=== PATIENT | female | born 1965 | race African-American/Black ===

== ENCOUNTER 2018-10-02 04:03 | Inpatient (IN) | payer SELFPAY ==
[~2018-10-02] VITALS: Ht 165.1 cm; Wt 70.3 kg
[2018-10-02] MEDS ORDERED: ONDANSETRON HCL 4MG/2ML INJ IV STA (04:36)
[2018-10-02] MEDS ORDERED: KETOROLAC 30MG/ML VIAL IV STA (04:36)
[2018-10-02 05:39] LABS: BASOPHILS % 0.3 % (0.0-2.0); EOSINOPHILS % 0.1 % (0.0-5.0); HEMATOCRIT. 31.9 % (36.0-48.0); HEMOGLOBIN. 10.5 g/dL (12.0-16.0); LYMPHOCYTES % 8.3 % (20.0-50.0); MEAN CORPUSCULAR HEMOGLOBIN 27.5 pg (28.0-32.0); MEAN CORPUSCULAR VOLUME 83.2 fL (81.0-99.0); MEAN PLATELET VOLUME 9.9 fl (7.4-10.4); MONOCYTES % 4.2 % (2.0-8.0); NEUTROPHILS % 87.1 % (40.0-76.0); PLATELET 227 x1000/uL (130-400); RED BLOOD CELL COUNT 3.84 mill/uL (4.2-5.4); RED CELL DISTRIBUTION WIDTH 14.9 % (11.6-14.6)
[2018-10-02 05:43] LABS: CHLORIDE 104 mEq/L (98-107)
[2018-10-02 05:44] LABS: PROTHROMBIN TIME 10.4 sec (9.1-11.1)
[2018-10-02 05:47] LABS: ETHANOL BLOOD < 10 mg/dL
[2018-10-02 06:49] LABS: CLARITY URINE CLEAR (CLEAR); COLOR URINE YELLOW (YELLOW); KETONES URINE 1+ (NEGATIVE); LEUKOCYTE ESTERASE URINE NEGATIVE (NEGATIVE); NITRITE URINE NEGATIVE (NEGATIVE); OCCULT BLOOD URINE NEGATIVE (NEGATIVE); PROTEIN URINE NEGATIVE (NEGATIVE); SPECIFIC GRAVITY URINE 1.018 (1.005-1.030); UROBILINOGEN URINE 0.2 E.U./dL (0.2-1.0)
[2018-10-02] MEDS ORDERED: MORPHINE SULFATE 4 MG/ML CPJ (NOT FOR IM USE) IV ONE ×2 (07:45)
[2018-10-02] MEDS ORDERED: ONDANSETRON HCL 4MG/2ML INJ IV ONE (07:45)
[2018-10-02 08:00] VITALS: BP 116/62
[2018-10-02] MEDS ORDERED: ACETAMINOPHEN 325MG TABLET PO PRN (10:00)
[2018-10-02] MEDS ORDERED: LORAZEPAM 0.5MG TABLET PO PRN (10:00)
[2018-10-02] MEDS ORDERED: GUAIFENESIN 200MG/10ML SUGAR FREE UDC PO PRN (10:00)
[2018-10-02] MEDS ORDERED: IPRATROPIUM/ALBUTEROL 0.5-3(2.5)MG/3ML NEB INH PRN (10:00)
[2018-10-02] MEDS ORDERED: MAGNESIUM/ALUMINUM HYDROXIDE/SIMETHICONE 30ML UDC PO PRN (10:00)
[2018-10-02] MEDS ORDERED: NA PHOS,M-B/NA PHOS,DI-BA ENEMA 118ML PR PRN (10:00)
[2018-10-02] MEDS ORDERED: CLONIDINE 0.1MG TABLET PO PRN (10:00)
[2018-10-02] MEDS ORDERED: TRAMADOL 50MG TABLET PO PRN (10:00)
[2018-10-02] MEDS ORDERED: NITROGLYCERIN 0.4MG TABLET SL SL PRN (10:00)
[2018-10-02] MEDS ORDERED: ONDANSETRON HCL 4MG/2ML INJ IV PRN (10:00)
[2018-10-02] MEDS: METOPROLOL TARTRATE 25MG TABLET PO SCH ×2 (10:56→23:12)
[2018-10-02 11:00] VITALS: BP 146/66
[2018-10-02] MEDS: DEXT 5%/0.45% NACL 1000ML 1,000 ML IV SCH ×2 (11:11→23:09)
[2018-10-02 12:00] VITALS: BP 146/66
[2018-10-02] MEDS: PIPERACILLIN/TAZ 3.375G PREMIX 50 ML IV SCH ×2 (13:02→19:00)
[2018-10-02] MEDS: PANTOPRAZOLE SODIUM 40 MG/VIAL IV SCH (13:03)
[2018-10-02] MEDS: ENOXAPARIN 40MG/0.4ML SYR SUBCUT SCH (13:03)
[2018-10-02 16:00] VITALS: BP 161/65
[2018-10-02] MEDS ORDERED: UNDE (16:33)
[2018-10-02] MEDS: KETOROLAC 15MG/ML VIAL IV PRN (17:51)
[2018-10-02 20:00] VITALS: BP 139/62
[2018-10-02] MEDS ORDERED: ZOLPIDEM TARTRATE 5MG TABLET PO PRN (21:00)
[2018-10-03] VITALS: BP 145/65
[2018-10-03] MEDS: PIPERACILLIN/TAZ 3.375G PREMIX 50 ML IV SCH ×3 (01:23→18:06)
[2018-10-03 04:00] VITALS: BP 136/66
[2018-10-03] MEDS: KETOROLAC 15MG/ML VIAL IV PRN (05:02)
[2018-10-03 07:31] LABS: BASOPHILS % 0.3 % (0.0-2.0); HEMATOCRIT. 32.6 % (36.0-48.0); HEMOGLOBIN. 10.5 g/dL (12.0-16.0); LYMPHOCYTES % 8.4 % (20.0-50.0); MEAN CORPUSCULAR HEMOGLOBIN 26.9 pg (28.0-32.0); MEAN CORPUSCULAR VOLUME 83.3 fL (81.0-99.0); MEAN PLATELET VOLUME 10.2 fl (7.4-10.4); MONOCYTES % 8.8 % (2.0-8.0); NEUTROPHILS % 81.5 % (40.0-76.0); PLATELET 254 x1000/uL (130-400); RED BLOOD CELL COUNT 3.91 mill/uL (4.2-5.4); RED CELL DISTRIBUTION WIDTH 15.1 % (11.6-14.6)
[2018-10-03 07:49] LABS: CHLORIDE 104 mEq/L (98-107)
[2018-10-03] MEDS: METOPROLOL TARTRATE 25MG TABLET PO SCH ×2 (09:00→22:27)
[2018-10-03] MEDS: PANTOPRAZOLE SODIUM 40 MG/VIAL IV SCH (09:04)
[2018-10-03] MEDS: ENOXAPARIN 40MG/0.4ML SYR SUBCUT SCH (09:06)
[2018-10-03] MEDS ORDERED: POTASSIUM CHLORIDE 20MEQ TABLET SR PO NR (09:45)
[2018-10-03 12:00] VITALS: BP 122/72
[2018-10-03] MEDS: DEXT 5%/0.45% NACL 1000ML 1,000 ML IV SCH (15:41)
[2018-10-03 16:00] VITALS: BP 130/69
[2018-10-03 20:00] VITALS: BP 115/59
[2018-10-04] VITALS (7 sets, daily range): BP systolic 100–117; BP diastolic 49–84
[2018-10-04] MEDS: PIPERACILLIN/TAZ 3.375G PREMIX 50 ML IV SCH ×4 (00:41→16:56)
[2018-10-04] MEDS: KETOROLAC 15MG/ML VIAL IV PRN ×3 (00:41→21:04)
[2018-10-04] MEDS: DEXT 5%/0.45% NACL 1000ML 1,000 ML IV SCH ×2 (04:44→14:57)
[2018-10-04 06:41] LABS: BASOPHILS % 0.4 % (0.0-2.0); EOSINOPHILS % 2.9 % (0.0-5.0); HEMATOCRIT. 31.1 % (36.0-48.0); HEMOGLOBIN. 10.2 g/dL (12.0-16.0); LYMPHOCYTES % 12.6 % (20.0-50.0); MEAN CORPUSCULAR HEMOGLOBIN 27.6 pg (28.0-32.0); MEAN CORPUSCULAR VOLUME 83.8 fL (81.0-99.0); MEAN PLATELET VOLUME 10.3 fl (7.4-10.4); MONOCYTES % 10.8 % (2.0-8.0); NEUTROPHILS % 73.3 % (40.0-76.0); PLATELET 246 x1000/uL (130-400); RED BLOOD CELL COUNT 3.71 mill/uL (4.2-5.4); RED CELL DISTRIBUTION WIDTH 15.4 % (11.6-14.6)
[2018-10-04 07:12] LABS: CHLORIDE 104 mEq/L (98-107)
[2018-10-04] MEDS: POTASSIUM CHLORIDE 20MEQ/PACKET PO NR ×2 (08:23→08:50)
[2018-10-04] MEDS: METOPROLOL TARTRATE 25MG TABLET PO SCH ×2 (08:24→21:02)
[2018-10-04] MEDS: ENOXAPARIN 40MG/0.4ML SYR SUBCUT SCH (08:24)
[2018-10-04] MEDS: PANTOPRAZOLE SODIUM 40 MG/VIAL IV SCH (08:26)
[2018-10-05] MEDS ORDERED: FAMOTIDINE 20MG/2ML VIAL IV SCH (09:00)
== END 2018-10-04 22:15 | disposition home or self-care (01) ==
LOC: ER 04:03 → 6EST 09:04 → EDBEDREQTM 09:07 → EDBEDREQ 09:07 → ENRESERV 09:21
PROVIDERS: ADMIT Internal Medicine; ATTEND Internal Medicine
DX: K80.42 Calculus of bile duct with acute cholecystitis without obstruction (principal); E83.51 Hypocalcemia; I10 Essential (primary) hypertension; K82.8 Other specified diseases of gallbladder
CPT/HCPCS: 36415; 76700; 78227; 83036; 96374; 96375; 96376; 99285; A9537; C9113; G0482; J1650; J1885; J2270; J2405; J2543